=== PATIENT | male | born 1990 | race Two or more races ===

== ENCOUNTER 2021-11-21 14:54 | Emergency (ER) | payer OTHER ==
[~2021-11-21] VITALS: Ht 172.7 cm; Wt 77.1 kg
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
--- NOTE | 2021-11-21 15:47 | NUR ---
URINE SPECIMEN SENT TO LAB
--- NOTE | 2021-11-21 15:51 | NUR ---
ASSISTANT TO THE PRESIDENT AT BEDSIDE TO DO XRAY OF PELVIS AND RIGHT HIP
--- NOTE | 2021-11-21 15:54 | NUR ---
KEISHA OF SCROTUM DONE AT BEDSIDE
[2021-11-21] MEDS ORDERED: KETOROLAC TROMETHAMINE INJ 30 MG/ML VIAL IM ONE (16:00)
--- NOTE | 2021-11-21 16:10 | NUR ---
TORADOL GIVEN IM ON LEFT GLUTEAL AREA
[2021-11-21] MEDS ORDERED: KETOROLAC TROMETHAMINE INJ 30 MG/ML VIAL ONE (16:13)
--- NOTE | 2021-11-21 16:14 | NUR ---
PATIENT WAS BROUGHT TO RAD ROOM FOR CT OF PELVIS VIA STRETCHER
[2021-11-21 16:20] LABS: BILIRUBIN,URINE NEGATIVE (NEGATIVE); COLOR,URINE YELLOW (YELLOW); LEUKOCYTE ESTERASE ,URINE NEGATIVE (NEGATIVE); NITRITE, URINE NEGATIVE (NEGATIVE); PROTEIN,URINE NEGATIVE (NEGATIVE); UGLUCOSE NEGATIVE (NEGATIVE); UROBILINOGEN,URINE 0.2 EU/dL (0.2)
[2021-11-21 16:47] LABS: BACTERIA,URINE None seen /HPF (None Seen); RBC,URINE 0-2 /HPF (0-2); SQUAMOUS EPITHELIAL CELL,UR None Seen /HPF (None Seen); WBC,URINE 0-2 /HPF (0-3)
[2021-11-21] MEDS ORDERED: NAPR-1164 PO (17:27)
--- NOTE | 2021-11-21 17:56 | NUR ---
Patient discharged to home in stable condition. Written and verbal after care instructions given. Patient verbalizes understanding of instruction.
[2021-11-21 17:57] VITALS: BP 129/84
== END 2021-11-21 17:57 | disposition home or self-care (01) ==
LOC: ER 15:00
DX: S76.211A Strain of adductor muscle, fascia and tendon of right thigh, initial encounter (principal); V23.4XXA Motorcycle driver injured in collision with car, pick-up truck or van in traffic accident, initial encounter; Y93.55 Activity, bike riding; Y92.481 Parking lot as the place of occurrence of the external cause; Y99.8 Other external cause status
CPT/HCPCS: 72192; 73502; 76870; 81001; 96372; 99285; J1885